=== PATIENT | female | born 1990 | race Caucasian/White ===

== ENCOUNTER 2018-03-22 22:42 | Emergency (ER) | payer MEDICAID ==
[~2018-03-22] VITALS: Ht 157.5 cm; Wt 59.0 kg
[2018-03-22 23:18] VITALS: BP 147/100
== END 2018-03-23 00:17 | disposition home or self-care (01) ==
LOC: ER 22:43
DX: K04.7 Periapical abscess without sinus (principal)

== ENCOUNTER 2020-01-19 15:10 | Inpatient (IN) | payer MEDICAID ==
[~2020-01-19] VITALS: Ht 167.6 cm; Wt 64.8 kg
[2020-01-19] MEDS ORDERED: cefTRIAXone 1GM/50ML D5W 50 ML IV ONE (15:45)
[2020-01-19] MEDS ORDERED: CLINDAMYCIN 600MG IV 50 ML IV ONE (15:45)
[2020-01-19 16:30] LABS: Basophils # (auto) 0.1 10 ^3/uL (0-0.2); Eosinophils # (auto) 0.2 10 ^3/uL (0-0.8); Monocytes # (auto) 0.9 10 ^3/uL (0-1.3)
[2020-01-19 16:32] LABS: Eosinophils % (auto) 2.5 % (0.0-7.0); Hematocrit 33.7 % (36.0-46.0); Hemoglobin 11.3 g/dL (12.2-16.2); Lymphocytes # (auto) 1.9 10 ^3/uL (0.4-5.4); Lymphocytes % (auto) 22.6 % (10.0-50.0); Mean Corpuscular Hemoglobin 27.6 pg (28.0-32.0); Mean Corpuscular Hgb Conc. 33.4 g/dL (32.0-36.0); Mean Corpuscular Volume 82.7 fL (80.0-100.0); Monocytes % (auto) 10.2 % (0.0-12.0); Neutrophils # (auto) 5.4 10 ^3/uL (1.6-8.6); Neutrophils % (auto) 63.7 % (37.0-80.0); Nucleated Red Blood Cells % 0.1 %; Platelet Count (auto) 538 10^3/uL (140-450); Red Blood Cells 4.08 10^6/uL (4.0-5.20); Red Cell Distribution Width 14.1 % (11.8-14.3); White Blood Cell 8.5 10^3/uL (4.4-10.8)
[2020-01-19 17:26] LABS: Anion Gap 2 (5-15); Blood Urea Nitrogen 11 mg/dL (7-18); Carbon Dioxide 31 mmol/L (21-32); Chloride 100 mmol/L (98-107); Glucose 105 mg/dL (74-106); Sodium 133 mmol/L (136-145)
[2020-01-19 17:27] LABS: Alanine Aminotransferase 20 U/L (13-56); Alkaline Phosphatase 117 U/L (45-117); Aspartate Aminotransferase 41 U/L (15-37); BUN/Creatinine Ratio 15.3; Bilirubin, Total 0.4 mg/dL (0.2-1.0); Calcium 9.2 mg/dL (8.5-10.1); GFR African American 122 mL/min; GFR Non-African American 101 mL/min; Total Protein 8.7 g/dL (6.4-8.2)
[2020-01-19 17:36] LABS: Potassium 5.7 mmol/L (3.5-5.1)
[2020-01-19] MEDS ORDERED: SODIUM CHLORIDE 0.9% 1,000 ML IVB ONE (18:59)
[2020-01-19] MEDS ORDERED: TETANUS-DIPTH-ACEL PERTUSSIS 0.5ML SYR Tdap IM ONE (20:00)
[2020-01-19 21:22] LABS: BUN/Creatinine Ratio 16.1; Calcium 9.1 mg/dL (8.5-10.1)
[2020-01-19 21:24] LABS: INR 1.01 (0.9-1.15); Partial Thromboplastin Time 31.6 sec (23.0-31.2)
[2020-01-20] MEDS ORDERED: ONDANSETRON HCL 4 MG/2 ML VIAL IV PRN (01:00)
[2020-01-20] MEDS: PIPERACILLIN-TAZOB 3.375GM 100 ML IV SCH ×4 (01:34→18:31)
[2020-01-20] MEDS: SODIUM CHLORIDE 0.9% 1,000 ML IV SCH ×3 (01:34→17:00)
--- NOTE | 2020-01-20 04:00 | NUR ---
Patient Brought to Unit Via Wheelchair from ER w/ all belongings Patient AOx4 w/ no s/s of distress or SOB. Patient bed locked in lowest position w/ HOB at 30 degrees and call light is within reach. POC discussed w/ patient. Will continue to monitor.
[2020-01-20 04:36] VITALS: BP 117/55
[2020-01-20 06:13] VITALS: BP 130/99
--- NOTE | 2020-01-20 07:09 | NUR ---
Alanasyn Still running from ER/ Notified Pharmacy Pharmacy will call back to notify if timing needs to be changed or not.
--- NOTE | 2020-01-20 07:22 | NUR ---
Pharmacy notified to follow through with next dose of antibiotic medication at 0700
--- NOTE | 2020-01-20 08:00 | NUR ---
ASSESSMENT NOTE PT IS ALERT ORIENTED X4, RESTING IN BED COMFORTABLY, NO DISTRESS NOTED, ABLE TO SELF REPOSITION AND VERBALIS HER DEMANDS, PAIN 0/10 AT THIS TIME, LARGE WOUND NOTED AT LEFT LOWER CALF, SKIN REDNESS NOTED AROUND THE WOUND BED, WITH MINIMAL DRAINAGE, PT AMBULATE NEEDED, CALL LIGHT WITHIN REACH
[2020-01-20 08:39] LABS: Hematocrit 32.3 % (36.0-46.0); Mean Corpuscular Hemoglobin 27.2 pg (28.0-32.0); Mean Corpuscular Hgb Conc. 34.1 g/dL (32.0-36.0); Mean Corpuscular Volume 79.9 fL (80.0-100.0); Platelet Count (auto) 441 10^3/uL (140-450); Red Blood Cells 4.05 10^6/uL (4.0-5.20); Red Cell Distribution Width 13.9 % (11.8-14.3); White Blood Cell 8.1 10^3/uL (4.4-10.8)
[2020-01-20 08:41] LABS: Basophils % (manual) 0 (0.0-2.0); Blast Cells 0; Metamyelocytes % 0; Myelocytes % 0; Promyelocytes % 0; Reactive Lymphocytes 0
[2020-01-20 08:50] LABS: Alanine Aminotransferase 17 U/L (13-56); Albumin 2.7 g/dL (3.4-5.0); Anion Gap 6 (5-15); Aspartate Aminotransferase 21 U/L (15-37); BUN/Creatinine Ratio 13.6; Blood Urea Nitrogen 9 mg/dL (7-18); Calcium 8.6 mg/dL (8.5-10.1); Carbon Dioxide 26 mmol/L (21-32); Chloride 101 mmol/L (98-107); GFR African American 135 mL/min; GFR Non-African American 112 mL/min; Glucose 86 mg/dL (74-106); Potassium 4.6 mmol/L (3.5-5.1); Sodium 133 mmol/L (136-145)
[2020-01-20 08:52] LABS: Alkaline Phosphatase 112 U/L (45-117); Bilirubin, Total 0.2 mg/dL (0.2-1.0); Total Protein 7.8 g/dL (6.4-8.2)
[2020-01-20 09:00] VITALS: BP 129/92
--- NOTE | 2020-01-20 10:30 | NUR ---
WOUND CARE NOTE: IN TO SEE PATIENT AT THIS TIME PER WOUND CARE CONSULT REQUEST. PATIENT ADMITTED TO [facility] WITH DIAGNOSIS OF LLE OPEN WOUND, WOUND PHOTO TAKEN UPON ADMIT BY BEDSIDE NURSE FOR REFERENCE. PATIENT HAS CURRENT CLAUS SCORE OF 18. SHE CAN SELF TURN/REPOSITION SELF. PATIENT IS NOTED TO HAVE A 4 X 4 CM NECROTIC, DRAINING ABSCESS TO LEFT CALF. LIGHT AMOUNT OF SERO-PURULENT DRAINAGE NOTED. WOUND BED IS BLACK, DARK RED. PERIWOUND IS INDURATED, TENDER TO THE TOUCH. WOUND CULTURE IS PENDING. PATIENT HAS SURGICAL CONSULT ORDERED FOR POSSIBLE SURGERY OF THIS WOUND, PENDING. APPLIED OPTIFOAM GENTLE DRESSING TO WOUND TO COVER, ABSORB, PROTECT. SKIN/WOUND CARE PLAN IMPLEMENTED AT THIS TIME. RECOMMEND: DIETARY CONSULT, SKIN/WOUND CARE PLAN, DAILY/PRN DRESSING CHANGE UNTIL SURGERY. WILL DEFER ALL OTHER WOUND CARE ORDERS TO SURGEON AT THIS POINT. WOUND CARE TEAM WILL CONTINUE TO MONITOR IF ORDERED BY SURGEON POST OP, OR IF NO SURGERY TAKES PLACE. WOUND CARE TEAM WILL CONTINUE TO MONITOR. Addendum: 01/20/20 at 1801 by Pamela Delgado RN Amended: Links added.
[2020-01-20 10:39] LABS: Band Neutrophils % (manual) 1; Eosinophils % (manual) 5 (0-7); Lymphocytes % (manual) 21 (10.0-50.0); Monocytes % (manual) 12 (0-12)
--- NOTE | 2020-01-20 11:00 | NUR ---
ATTEMPT TO START IV WITH IV FINDER MACHINE, NO SUCCESS, PT IS HARD STICK, NEW ORERS OF MID LINE PLACED, CHARGE NURSE ELIANE FRAZIER
--- NOTE | 2020-01-20 11:46 | NUR ---
WOUND NURSE CONG RN AT BED SIDE, ASSESSING PATIENT'S WOUND, WOUND CARE, NEW DRESSING APPLIED
[2020-01-20 13:00] VITALS: BP 127/78
--- NOTE | 2020-01-20 13:30 | NUR ---
PAGE DR BENEDICT REGARDING THE SURGICAL CONSULT
--- NOTE | 2020-01-20 14:45 | NUR ---
PICC LINE NURSE ALIS RN AT BED SIDE WITH A MID LINE PROCEDURE
--- NOTE | 2020-01-20 15:00 | NUR ---
Midline Placement: Patient educated on need for midline placement. All risks and benefits explained and all questions and concerns addresses prior to procedure. 18g/10cm midline inserted via RIGHT CEPHALIC vein using Ultrasound. Sterile technique utilized. Blood return obtained from SINGLE lumen and flushed easily with NS using proper technique. Midline secured with saline lock; biodisc and occlusive dressing applied. Primary RN notified. Midline lot # [id number] .
--- NOTE | 2020-01-20 15:35 | NUR ---
NO SEEN PATIENT PAGE DR RAYMUNDO
--- NOTE | 2020-01-20 15:40 | NUR ---
NO ANSWER FROM DR ZACKARY [facility]URO [facility], INFORM ME THAT DR JOHNSTON DENTAL DIRECTOR, PAGE DR JOHNSTON
--- NOTE | 2020-01-20 16:09 | NUR ---
DR JOHNSTON CALLED BACK INFORM ME THAT DR RAYMUNDO ADMIT PT UNDER 2 GROUPS, AND ITS NOT HIM, AND I NEED TO CALL EITHER DR WINCHESTER, DR DUDLEY, OR DR TUBBS WHOEVER HYPOID GEAR TESTER
--- NOTE | 2020-01-20 16:13 | NUR ---
PAGE DR WINCHESTER REGARDING PT
--- NOTE | 2020-01-20 16:31 | NUR ---
PAGE DR BENEDICT CALLED BACK WITH NEW ORDERS
--- NOTE | 2020-01-20 16:58 | NUR ---
PAGE DR BENEDICT TO LET HIM KNOW THAT THE VENOUS STUDY SHOWS NO DRAINABLE FLUIDS
[2020-01-20 17:00] VITALS: BP 120/81
--- NOTE | 2020-01-20 17:29 | NUR ---
DR DUDLEY AT BED SIDE FOLLOWING UP ON PT, JERRI TO FEED PT, AND CANCELL NPO
--- NOTE | 2020-01-20 18:29 | NUR ---
PT CONTINUE STABLE, CONTINUE MONITORING
--- NOTE | 2020-01-20 19:00 | NUR ---
Opening Shift Note Assumed care of patient, awake and alert. No S/S of distress/SOB or pain. Instructed on POC and to call for assist PRN, will continue to monitor for changes Q1hr and PRN.
[2020-01-20 19:52] LABS: Urine Bacteria NONE SEEN /hpf (None Seen); Urine Blood Negative /uL (Negative); Urine Specific Gravity 1.012 (1.001-1.035); Urine WBC <1 /hpf (0 - 5)
[2020-01-20 19:55] LABS: Alcohol, Urine < 3.0 mg/dL (0-10); Amphetamine Screen, Urine POSITIVE (NEGATIVE); Barbiturate Scree,Urine NEGATIVE (NEGATIVE); Benzodiazephine Screen, Urine NEGATIVE (NEGATIVE); Cannabinoid Screen, Urine NEGATIVE (NEGATIVE); Cocaine Screen, Urine NEGATIVE (NEGATIVE); Opiate Scree,Urine POSITIVE (NEGATIVE); Phencyclidine Screen, Urine NEGATIVE (NEGATIVE)
[2020-01-20 22:00] VITALS: BP 134/88
--- NOTE | 2020-01-20 23:04 | NUR ---
DR LYNETTE SALTER INFORMED OF POSITIVE BLOOD CULTURES. GRAM + COCCI IN CLUSTERS. ORDERED VANCOMYCIN PER PHARMACY.
[2020-01-20] MEDS ORDERED: VANCOMYCIN PER PHARMACY 0 MG IV SCH (23:15)
[2020-01-20] MEDS ORDERED: VANCOMYCIN 1GM/250ML 250 ML IV ONE (23:30)
[2020-01-21] MEDS: PIPERACILLIN-TAZOB 3.375GM 100 ML IV SCH ×4 (00:56→19:02)
[2020-01-21] MEDS: SODIUM CHLORIDE 0.9% 1,000 ML IV SCH ×3 (01:00→17:00)
[2020-01-21 04:53] VITALS: BP 120/77
[2020-01-21] MEDS ORDERED: PENI500T2 PO (05:53)
[2020-01-21] MEDS ORDERED: IBUP800T24 PO (05:53)
[2020-01-21 06:38] LABS: Basophils # (auto) 0 10 ^3/uL (0-0.2); Basophils % (auto) 0.4 % (0.0-2.0); Eosinophils # (auto) 0.2 10 ^3/uL (0-0.8); Eosinophils % (auto) 2.3 % (0.0-7.0); Hematocrit 32.1 % (36.0-46.0); Hemoglobin 10.6 g/dL (12.2-16.2); Lymphocytes # (auto) 1.4 10 ^3/uL (0.4-5.4); Lymphocytes % (auto) 18.4 % (10.0-50.0); Mean Corpuscular Hemoglobin 27.1 pg (28.0-32.0); Monocytes # (auto) 1.1 10 ^3/uL (0-1.3); Monocytes % (auto) 14.1 % (0.0-12.0); Neutrophils % (auto) 64.8 % (37.0-80.0); Platelet Count (auto) 450 10^3/uL (140-450); Red Blood Cells 3.92 10^6/uL (4.0-5.20); White Blood Cell 7.7 10^3/uL (4.4-10.8)
[2020-01-21 06:56] LABS: BUN/Creatinine Ratio 12.8; Calcium 8.4 mg/dL (8.5-10.1); Potassium 4.1 mmol/L (3.5-5.1)
[2020-01-21 09:00] VITALS: BP 127/88
--- NOTE | 2020-01-21 12:20 | NUR ---
Nutrition Consult Consider adding MVI and Vitamin C 500 mg BID Est energy needs [id number] kcal (25-30 kcal/kg BW 61.5kg) Est protein needs 48-62g (0.8-1g/kg BW 61.5kg) Will reassess prn. Addendum: 01/21/20 at [address] Amended: Links added.
[2020-01-21 12:35] VITALS: BP 126/91
[2020-01-21] MEDS: VANCOMYCIN 1GM/250ML 250 ML IV SCH (12:37)
[2020-01-21] MEDS: MORPHINE SULF INJ 2 MG/ML SYRINGE 1ML IV PRN (12:37)
--- NOTE | 2020-01-21 16:12 | NUR ---
Assessment Regarding social service consult for drug use. Patient is a 30-year-old female who is alert and oriented. Prior to admission patient lived with family and functioned independently. Patient refused resources. Per patient she will return to her prior living arrangement post discharge and family will transport her home. Patient was informed she has a right to participate in all discharge planning. Patient verbalized understanding.
[2020-01-21 17:00] VITALS: BP 121/71
--- NOTE | 2020-01-21 17:45 | NUR ---
[facility] SWAB SENT
--- NOTE | 2020-01-21 17:45 | NUR ---
WOUND CARE NOTE/ WOUND CULTURE WOUND CARE PERFORMED ON LEFT CALF. CLEANED AND SWABBED FOR WOUND CULTURE ORDERED. PT TOLERATED WELL.
--- NOTE | 2020-01-21 18:20 | NUR ---
CLOSING SUMMARY PT ALERT AND ORIENTED X4. LEFT CALF STILL RED AND SWOLLEN. PER PT, IT LOOKS MUCH BETTER TODAY THAN IT DID YESTERDAY. PAIN HAD BEEN TOLERABLE. PT'S ABLE TO WALK WITH STEADY GAIT. PT HAD BEEN GOING OUT FOR SMOKE. AMA TO SMOKE ON FILE.
--- NOTE | 2020-01-21 19:16 | NUR ---
SPOKE TO DR Juice MICHEL, SURGEON. WILL SEE PT TOMORROW.
[2020-01-21 22:00] VITALS: BP 109/71
[2020-01-22] MEDS: PIPERACILLIN-TAZOB 3.375GM 100 ML IV SCH ×3 (00:30→13:13)
[2020-01-22] MEDS: SODIUM CHLORIDE 0.9% 1,000 ML IV SCH ×3 (00:31→15:00)
[2020-01-22] MEDS: VANCOMYCIN 1GM/250ML 250 ML IV SCH (02:08)
[2020-01-22 05:00] VITALS: BP 119/78
[2020-01-22 05:43] LABS: Basophils # (auto) 0 10 ^3/uL (0-0.2); Basophils % (auto) 0.4 % (0.0-2.0); Eosinophils # (auto) 0.2 10 ^3/uL (0-0.8); Eosinophils % (auto) 2.1 % (0.0-7.0); Hematocrit 31.3 % (36.0-46.0); Hemoglobin 10.4 g/dL (12.2-16.2); Lymphocytes # (auto) 1.5 10 ^3/uL (0.4-5.4); Lymphocytes % (auto) 18.8 % (10.0-50.0); Mean Corpuscular Hemoglobin 27.5 pg (28.0-32.0); Mean Corpuscular Hgb Conc. 33.3 g/dL (32.0-36.0); Mean Corpuscular Volume 82.4 fL (80.0-100.0); Monocytes % (auto) 11.9 % (0.0-12.0); Neutrophils # (auto) 5.4 10 ^3/uL (1.6-8.6); Neutrophils % (auto) 66.8 % (37.0-80.0); Nucleated Red Blood Cells % 0.1 %; Platelet Count (auto) 432 10^3/uL (140-450); Red Blood Cells 3.79 10^6/uL (4.0-5.20); Red Cell Distribution Width 13.8 % (11.8-14.3); White Blood Cell 8.1 10^3/uL (4.4-10.8)
[2020-01-22 05:59] LABS: Calcium 8.4 mg/dL (8.5-10.1)
--- NOTE | 2020-01-22 06:56 | NUR ---
Closing note PATIENT IN BED RESTING COMFORTABLY. NO C/O PAIN IN MY SHIFT. VITAL SIGNS STABLE
[2020-01-22 09:00] VITALS: BP 105/63
[2020-01-22 13:00] VITALS: BP 106/72
[2020-01-22 17:00] VITALS: BP 111/72
[2020-01-22] MEDS: levoFLOXacin 750MG 150 ML IV SCH (18:00)
[2020-01-22 22:00] VITALS: BP 120/82
[2020-01-23] MEDS: SODIUM CHLORIDE 0.9% 1,000 ML IV SCH ×2 (04:20→17:40)
[2020-01-23 05:00] VITALS: BP 121/82
--- NOTE | 2020-01-23 06:47 | NUR ---
Closing Note Patient resting comfortably in bed. Vital signs are stable. No c/o pain this shift. Wii endorse care to day shift R.N.
[2020-01-23 07:11] LABS: Basophils # (auto) 0 10 ^3/uL (0-0.2); Basophils % (auto) 0.3 % (0.0-2.0); Eosinophils # (auto) 0.2 10 ^3/uL (0-0.8); Eosinophils % (auto) 1.9 % (0.0-7.0); Hematocrit 32.8 % (36.0-46.0); Hemoglobin 10.9 g/dL (12.2-16.2); Lymphocytes # (auto) 1.5 10 ^3/uL (0.4-5.4); Lymphocytes % (auto) 18.9 % (10.0-50.0); Mean Corpuscular Hemoglobin 27.5 pg (28.0-32.0); Mean Corpuscular Hgb Conc. 33.1 g/dL (32.0-36.0); Mean Corpuscular Volume 82.9 fL (80.0-100.0); Monocytes # (auto) 0.9 10 ^3/uL (0-1.3); Monocytes % (auto) 10.6 % (0.0-12.0); Neutrophils # (auto) 5.5 10 ^3/uL (1.6-8.6); Neutrophils % (auto) 68.3 % (37.0-80.0); Platelet Count (auto) 421 10^3/uL (140-450); Red Blood Cells 3.95 10^6/uL (4.0-5.20); Red Cell Distribution Width 14.1 % (11.8-14.3); White Blood Cell 8.1 10^3/uL (4.4-10.8)
[2020-01-23 07:27] LABS: BUN/Creatinine Ratio 12.3; Calcium 8.9 mg/dL (8.5-10.1); Potassium 3.9 mmol/L (3.5-5.1)
--- NOTE | 2020-01-23 08:00 | NUR ---
Received pt resting in bed, call light within reach, lt food wound draining and open to air, chucks and gauze pads placed under pt's leg, pt denies any pain at this time, will continue to monitor pt.
[2020-01-23 09:15] VITALS: BP 129/76
[2020-01-23] MEDS: levoFLOXacin 750MG 150 ML IV SCH (11:13)
[2020-01-23 13:00] VITALS: BP 119/71
[2020-01-23 17:00] VITALS: BP 131/83
[2020-01-23] MEDS: MORPHINE SULF INJ 2 MG/ML SYRINGE 1ML IV PRN (17:07)
[2020-01-23] MEDS ORDERED: ACE325T PO (18:33)
[2020-01-23] MEDS ORDERED: LEVO500T21 PO (18:33)
[2020-01-23] MEDS ORDERED: HYDR-4833 PO (18:33)
--- NOTE | 2020-01-23 18:42 | NUR ---
Called and spoke to Dr. Good / general surgeon to inform him the lt lower extremity ultrasound results, as per doctor ok to d/c pt with current wound care instructions to keep wound open to air.
--- NOTE | 2020-01-23 18:55 | NUR ---
Paged high school social studies teacher to inform that there is a discharge order and that pt has a high school social studies teacher consult for home health.
--- NOTE | 2020-01-23 19:20 | NUR ---
Received a call from Thanh / social media director to inform nurse that the social studies department chair consult for home health and wound care will not be able to be done for tonight that it will have to be done tomorrow.
--- NOTE | 2020-01-23 19:25 | NUR ---
Paged Dr. Neal Xiao to inform him that the hospice social worker will not be done by [facility] that it will be done tomorrow. Awaiting call back. Report given to shift supervisor rn to follow up and inform doctor.
--- NOTE | 2020-01-23 19:37 | NUR ---
Spoke to Dr. Ortiz regarding patient's discharge order since there's still a pending Social service consult for wound care. Per MD, he will speak with Dr. Xiao. Will follow up
--- NOTE | 2020-01-23 19:45 | NUR ---
Checked on patient, patient not in the room right now. Noted AMA to smoke form in the chart. Will come back and check patient later
--- NOTE | 2020-01-23 20:10 | NUR ---
Assumed care of patient, alert/oriented and ambulatory, respirations even and unlabored, no complains of pain. Will continue to monitor
--- NOTE | 2020-01-23 20:22 | NUR ---
Paged Dr. Ortiz and left a message. Awaiting call back
--- NOTE | 2020-01-23 20:45 | NUR ---
Spoke to Dr. China Xiao and per MD to go ahead and discharge patient tonight and just follow up with the Social Service tomorrow for home health. Dressing supplies given.
[2020-01-23 21:10] VITALS: BP 113/82
--- NOTE | 2020-01-23 22:00 | NUR ---
discharge wound photo taken of left lower leg wound per protocol. Wound dressing supplies given to patient.
--- NOTE | 2020-01-23 22:22 | NUR ---
Discharge instructions given as ordered. Encourage to follow up with PCP as instructed. All questions and concerns addressed. Patient verbalized understanding. Medication reconciliation form completed and copy given to patient. Midline removed with catheter intact, pressure dressing applied. Patient taken to vehicle via wheelchair with all personal belongings, accompanied by staff. No distress noted at time of departure.
== END 2020-01-23 22:22 | disposition home health service (06) | DRG 383 ==
LOC: ER 15:10 → OVERFLOW 15:11 → CENTRAL 01-20 03:46
PROVIDERS: ADMIT Hospitalist; ATTEND Hospitalist
DX: L03.116 Cellulitis of left lower limb (principal); L02.416 Cutaneous abscess of left lower limb; F17.210 Nicotine dependence, cigarettes, uncomplicated; F19.10 Other psychoactive substance abuse, uncomplicated; Z82.49 Family history of ischemic heart disease and other diseases of the circulatory system; Z83.3 Family history of diabetes mellitus
CPT/HCPCS: 36415; 73700; 80048; 80053; 80307; 81001; 83036; 83605; 83735; 84702; 85007; 85025; 85027; 85610; 85730; 87040; 87077; 87081; 87086; 87186; 87205; 90715; 93926; 93971; 99291; G0378; J0696; J1956; J2543; J3490